=== PATIENT | female | born 1975 | race African-American/Black ===

== ENCOUNTER 2017-03-29 08:00 | Inpatient (IN) | payer OTHER ==
[2017-03-29 09:45] LABS: MCH 30.1 pg (25.7-33.7); MEAN PLT VOLUME 7.8 fl (7.5-11.1); PLATELET COUNT 339 K/MM3 (134-434); RDW 14.6 % (11.6-15.6)
[2017-03-29 09:46] VITALS: BMI 30.2
[2017-03-29 09:56] LABS: INR 0.89 (0.82-1.09); PROTHROMBIN TIME (PATIENT) 9.8 SEC (9.98-11.88)
[2017-03-29 09:59] LABS: ACTIVATED PTT 29.3 SECONDS (26.9-34.4)
[2017-03-29 10:16] LABS: ANION GAP 10 (8-16); CALCIUM 8.8 mg/dL (8.5-10.1); CO2 23 mmol/L (21-32); CREATININE 0.7 mg/dL (0.55-1.02); GLUCOSE,RANDOM 74 mg/dL (74-106)
[2017-03-29] MEDS ORDERED: DINOPROSTONE 10 MG VAGINAL SUPPOSITORY VG ONE (10:25)
[2017-03-29] MEDS ORDERED: PROMETHAZINE HCL 25 MG/1 ML VIAL IVPUSH ONE (10:37)
[2017-03-29] MEDS ORDERED: BUTORPHANOL TARTRATE 1 MG/ML VIAL IVPB ONE (10:37)
--- NOTE | 2017-03-29 10:54 | HP ---
Past Medical History - Admission Chief Complaint: Here for labor induction History of Present Illness: 42 y/o female with SIUP at 40.6 weeks here for labor induction due to AMA. complicated only by mom being AMA, a sickle cell trait carrier - FOB negative as well as SMA carrier (FOB not tested). Pt with low risk PENTA screen. Pt declined other testing. GBS negative. History Source: Patient, Medical Record Limitations to Obtaining History: No Limitations - Past Medical History Cardiovascular: No: CAD, HTN Pulmonary: No: Asthma, COPD Gastrointestinal: No: GERD, Irritable Bowel Disease Hepatobiliary: No: Hepatitis B, Hepatitis C Renal/: No: UTI Reproductive: No: Fibroids, PID ...: 3 ...Para: 2 ...Term: 2 ...: 0 ...Spon : 0 ...Induced : 0 ...Multiple Gestation: 0 ...EDC by Sono: 03/23/17 Heme/Onc: Yes: Sickle Cell Trait. No: Anemia Infectious Disease: No: MRSA, STD's Psych: No: Anxiety, Bipolar, Depression Endocrine: No: Diabetes Mellitus, Hyperthyroidism - Past Surgical History Past Surgical History: Yes: None Hx Myomectomy: No Hx Transabdominal Cerclage: No - Smoking History Smoking history: Never smoked Have you smoked in the past 12 months: No - Alcohol/Substance Use Hx Alcohol Use: No - Social History ADL: Independent History of Recent Travel: No Home Medications - Allergies Allergies/Adverse Reactions: Allergies Allergy/AdvReac Type Severity Reaction Status Date / Time No Known Allergies Allergy Verified 03/29/17 09:35 - Home Medications Home Medications: Ambulatory Orders Pnv95/Ferrous Fumarate/FA [ Vitamin Tablet] 1 each PO DAILY 03/29/17 Review of Systems - Review of Systems Constitutional: reports: No Symptoms Eyes: reports: No Symptoms HENT: reports: No Symptoms Neck: reports: No Symptoms Cardiovascular: reports: No Symptoms Respiratory: reports: No Symptoms Gastrointestinal: reports: No Symptoms Genitourinary: reports: No Symptoms Breasts: reports: No Symptoms Reported Musculoskeletal: reports: No Symptoms Integumentary: reports: No Symptoms Neurological: reports: No Symptoms Endocrine: reports: No Symptoms Hematology/Lymphatic: reports: No Symptoms Psychiatric: reports: No Symptoms Physical Exam - Maternity Vital Signs: Vital Signs Temperature 98.1 F 03/29/17 10:00 Pulse Rate 18 L 03/29/17 10:00 Respiratory Rate 18 03/29/17 10:00 Blood Pressure 109/67 03/29/17 10:00 O2 Sat by Pulse Oximetry (%) Constitutional: Yes: Well Nourished, No Distress, Calm Eyes: Yes: Conjunctiva Clear, EOM Intact HENT: Yes: Atraumatic, Normocephalic Neck: Yes: Supple, Trachea Midline Cardiovascular: Yes: Regular Rate and Rhythm Lungs: Clear to auscultation - Abdominal Exam/OB Number of Fetuses: Single Presentation: Vertex Contractions: Yes Regularity: Irregular Intensity: Unaware Heart Rate (range): 125 Category: I Accelerations: Uniform Decelerations: None - Vaginal Exam/OB Vaginal Bleediing: No Dilatation (cm): 2 Effacement (%): 50 Amniotic Membrane Status: Intact Presentation: Vertex/Position Station: -2 - Physical Exam Psychiatric: Yes: Alert, Oriented - Labs Lab Results: CBC, BMP 03/29/17 09:30 03/29/17 09:30 Hemorrhage Risk Assessment - Risk Factors Medium Risk Factors: Yes: None High Risk Factors: Yes: None Risk Score: 1 Risk Level: Medium Risk Problem List - Problems (1) Advanced maternal age (AMA), 40 years or greater Code(s): RLK2055 - (2) Obesity (BMI 30.0-34.9) Code(s): E66.9 - OBESITY, UNSPECIFIED Assessment/Plan 42 yo with SIUP at 40.6 weeks for IOL - AFVSS - FHTS cat 1 - IOL, cervidil placed at this time, for removal at 2230 and start pitocin - GBS negative
[2017-03-29 11:01] LABS: PLATELET COMMENT2 NO CLOTTING DETECTED; PLATELET COMMENT3 FEW GIANT PLTS; PLATELET ESTIMATE ADEQUATE (NORMAL)
[2017-03-29] MEDS ORDERED: TUBERCULIN PPD 5 TU/0.1ML SYRINGE (IN PATIENT USE ONLY) ID ONE (11:30)
[2017-03-29] MEDS ORDERED: OXYTOCIN 15 UNITS/ LR 250 ML 250 ML IVPB SCH (23:00)
[2017-03-29] MEDS: ELECTROLYTE-148 SOLN 1,000 ML IV SCH (23:21)
[2017-03-30] MEDS ORDERED: FENTANYL/BUPIVACAINE/NS/PF - PCEA - 50 ML DISP.SYRIN EP SCH ×2 (02:15→07:15)
[2017-03-30] MEDS: ELECTROLYTE-148 SOLN 1,000 ML IV SCH (06:20)
--- NOTE | 2017-03-30 08:38 | PN ---
Delivery - Delivery Vaginal Delivery: No Problems Type of Anesthesia: Epidural Episiotomy/Laceration: None EBL (cc): 300 Delivery, Single - Stages of Labor Date of Delivery: 03/30/17 Time of Delivery: : Date Placenta Delivered: 03/30/17 Time Placenta Delivered: Placenta: Yes: Spontaneous - Condition of Infant Gender: Male Position: Right, OA - 1 Minute Total Score: 9 5 Minutes Total Score: 9 - Feeding Plan Initial Plan: Elected not to breastfeed exclusively throughout hospitalization Remarks - Remarks Remarks: uncomplicated of baby boy from JOSE G position - restituted ZEFERINO anterior shoulder (right) delivered with ease along with medicaid billing clerk shoulder and remainder of delayed cord clamping completed 3VC noted, clamped and cut Apgars 9/9 mom stable baby to well baby nursery Oxytocin infusing after delivery lochia WNL Sponge count correct
[2017-03-30] MEDS ORDERED: ACETAMINOPHEN 325 MG TABLET (FP) PO PRN (08:39)
[2017-03-30] MEDS ORDERED: BENZOCAINE 20% 57 GM BOTTLE TP PRN (08:39)
[2017-03-30] MEDS ORDERED: METHYLERGONOVINE MALEATE 0.2 MG/1 ML AMP IM PRN (08:39)
[2017-03-30] MEDS ORDERED: WITCH HAZEL 50% (TUCKS) 40 PAD/JAR PAD TP PRN (08:39)
[2017-03-30] MEDS ORDERED: oxyCODONE HCL 5 MG TABLET PO PRN (08:39)
[2017-03-30] MEDS ORDERED: BISACODYL 10 MG SUPP.RECT RC PRN (08:39)
[2017-03-30] MEDS ORDERED: BENZOCAINE 28 GM HEMORRHOIDAL OINTMENT TP PRN (08:39)
--- NOTE | 2017-03-30 08:45 | PN ---
Ante-Partal Exam - Subjective Subjective: Pt feeling pressure. Vital Signs: Vital Signs Temperature 99.0 F 03/30/17 08:00 Pulse Rate 99 H 03/30/17 06:35 Respiratory Rate 18 03/30/17 06:35 Blood Pressure 145/88 03/30/17 06:35 O2 Sat by Pulse Oximetry (%) 100 03/30/17 06:35 Bleeding: Yes Bleeding Description: Mild Headache: No Visual changes: No Right upper quadrant pain: No Pain (scale 1-10): 6 - Contractions Contractions: Yes Regularity: Regular Intensity: Strong Monitor Mode: External - Exam during Labor Heart Rate: 120 Variability: Moderate Heart Rate Location: [facility] Category: II Monitor Accelerations: Present Monitor Decelerations: Variable Exam: Vaginal Dilatation (cm): 9.5 Effacement (%): 100 Amniotic Membrane Status: Ruptured Presentation: Vertex Station: +1 - Intrapartum Hemorrhage Risk Medium Risk Factors: None High Risk Factors: None Risk Score: 0 Risk Level: Low Risk - Assessment/Plan Assessment/Plan: 42 y/o with SIUP at 41 weeks, labor induction due to AMA - FHTS cat 2 - IOL, s/p cervidil, now in labor, cat 2 - to begin pushing - GBS negative
[2017-03-30] MEDS: PRENATAL VITAMINS W/ FOLIC ACID TABLET (FP) PO SCH (10:00)
[2017-03-30] MEDS: OXYTOCIN 20 UNITS in 0.9% NS 1,000 ML IV SCH (10:02)
[2017-03-31] MEDS: IBUPROFEN 600 MG TABLET (FP) PO PRN ×3 (00:20→23:59)
--- NOTE | 2017-03-31 07:53 | PN ---
Post Progress Note - Subjective Subjective: 42 yo status post normal spontaneous vaginal delivery, seen and evaluated. Doing well. Type of Delivery: Vital Signs: Vital Signs Temperature 98.3 F 03/31/17 05:48 Pulse Rate 73 03/31/17 05:48 Respiratory Rate 20 03/31/17 05:48 Blood Pressure 123/73 03/31/17 05:48 O2 Sat by Pulse Oximetry (%) 100 03/30/17 09:30 Breast Exam: Yes: Soft Uterus: Yes: Fundus Firm Abdomen/GI: Yes: Abdomen soft, Tolerating PO Lochia: Yes: Rubra Lochia, amount: Moderate Extremities: Yes: Calves non-tender Activity: Ambulating - Labs Labs: CBC WBC 8.0 K/mm3 (4.0-10.0) 03/29/17 09:30 RBC 3.97 M/mm3 (3.60-5.2) 03/29/17 09:30 Hgb 11.9 GM/dL (10.7-15.3) 03/29/17 09:30 Hct 34.2 % (32.4-45.2) 03/29/17 09:30 MCV 86.0 fl (80-96) 03/29/17 09:30 MCHC 35.0 g/dl (32.0-36.0) 03/29/17 09:30 RDW 14.6 % (11.6-15.6) 03/29/17 09:30 Plt Count 339 K/MM3 (134-434) 03/29/17 09:30 MPV 7.8 fl (7.5-11.1) 03/29/17 09:30 Neutrophils % 65.0 % (42.8-82.8) 03/29/17 09:30 Lymphocytes % 26.0 % (8-40) 03/29/17 09:30 Monocytes % 5.0 % (3.8-10.2) 03/29/17 09:30 Band Neutrophils 3.0 % (0-10) 03/29/17 09:30 Reactive Lymphocytes 1 % (0-80) 03/29/17 09:30 Platelet Estimate Adequate (NORMAL) 03/29/17 09:30 Platelet Comment No clumping noted 03/29/17 09:30 Platelet Comment No clotting detected 07/06/17 09:30 Assessment/Plan Status post normal vaginal delivery Stable Continue routine care
[2017-03-31 08:53] LABS: BASOPHIL 0.5 % (0-2.0); EOSINOPHIL 0.8 % (0-4.5); MCH 29.7 pg (25.7-33.7); MCHC 34.3 g/dl (32.0-36.0); MEAN CELL VOLUME 86.5 fl (80-96); MEAN PLT VOLUME 7.6 fl (7.5-11.1); NEUTROPHILS 78.3 % (42.8-82.8); PLATELET COUNT 301 K/MM3 (134-434); RDW 14.3 % (11.6-15.6); WHITE BLOOD COUNT 17.5 K/mm3 (4.0-10.0)
[2017-03-31] MEDS: PRENATAL VITAMINS W/ FOLIC ACID TABLET (FP) PO SCH (10:07)
[2017-03-31] MEDS: OXYTOCIN 20 UNITS in 0.9% NS 1,000 ML IV SCH (13:37)
[2017-03-31] MEDS: ELECTROLYTE-148 SOLN 1,000 ML IV SCH (13:38)
--- NOTE | 2017-03-31 20:12 | DS ---
Physical Exam-SUPERINTENDENT STATIONS Vital Signs: Vital Signs Temperature 98.9 F 03/31/17 08:25 Pulse Rate 78 03/31/17 08:25 Respiratory Rate 20 03/31/17 08:25 Blood Pressure 130/89 03/31/17 08:25 O2 Sat by Pulse Oximetry (%) 100 03/30/17 09:30 Labs: CBC, BMP 03/31/17 08:40 03/29/17 09:30 Delivery - Delivery Vaginal Delivery: No Problems Type of Anesthesia: Epidural Episiotomy/Laceration: None EBL (cc): 300 Delivery, Single - Stages of Labor Date 1st Stage Initiatied: 03/30/17 Time 1st Stage Initiated: 22:00 Date 2nd Stage Initiated: 03/30/17 Time 2nd Stage Initiated: 08:05 Date of Delivery: 03/30/17 Time of Delivery: 08:24 Time Placenta Delivered: 08:27 Placenta: Yes: Spontaneous - Condition of Medical Assistant/Eye Clinic Manager Present: No Infant Gender: Male Weight: 8 lb 1 oz Position: Right, OA Total Hours ROM (Hrs/Mins): 6hrs 57min - 1 Minute Total Score: 9 5 Minutes Total Score: 9 - Feeding Plan Initial Plan: Elected not to breastfeed exclusively throughout hospitalization Discharge Summary Reason For Visit: CERVIDIL INDUCTION Current Active Problems Advanced maternal age (AMA), 40 years or greater (Acute) Obesity (BMI 30.0-34.9) (Acute) Status post normal delivery (Acute) Procedures: Principal: Labor induction and uncomplicated . . Hospital Course: Normal/unremarkable post recovery. Condition: Good - Instructions Diet, Activity, Other Instructions: Physical activity Resume your normal everyday activity as tolerated no heavy lifting or exercise until seen by your doctor. You may walk unlimited rianna of and climb stairs. You may resume driving the car when you feel safe and comfortable behind the wheel. No sexual activity as instructed for 6 weeks. You may shower - no soaking in tubs/baths/pools for 6 weeks. Diet There are no dietary restrictions. Eat healthy, high-fiber foods. Drink 6 to 8 glasses of liquid each day. This will assist in keeping your bowels regular. Pain management You may take Tylenol or Ibuprofen (for example, Motrin, Advil etc.) as needed for pain. Call MD for any of the following: Severe pain not relieved by medication Fever of 101 or higher Excessive bleeding or drainage on dressing Inability to urinate Referrals: Yudy Mcconnell DO [Staff Physician] - Disposition: HOME - Home Medications Comprehensive Discharge Medication List: Ambulatory Orders Pnv95/Ferrous Fumarate/FA [ Vitamin Tablet] 1 each PO DAILY 03/29/17 Ibuprofen [Motrin -] 600 mg PO QID PRN #28 tablet 03/31/17
[2017-03-31] MEDS ORDERED: SENNOSIDES/DOCUSATE COMBO (SENNA PLUS) TABLET (UD) PO PRN (22:00)
[2017-03-31 23:29] VITALS: PULSE 68
[2017-04-01 08:29] VITALS: BP 115/74; TEMP 98.6
[2017-04-01] MEDS: PRENATAL VITAMINS W/ FOLIC ACID TABLET (FP) PO SCH (09:12)
== END 2017-04-01 13:25 | disposition home or self-care (01) | DRG 560 ==
LOC: JLDR 08:00 → J3W 14:35 → JLDR 03-30 00:42 → J3W 03-30 10:55
PROVIDERS: ADMIT Obstetrics & Gynecology; ATTEND Obstetrics & Gynecology
PROC: 10E0XZZ Delivery of Products of Conception, External Approach (ICD-10-PCS; principal; 2017-03-30)
PROC: 3E0P7GC Introduction of Other Therapeutic Substance into Female Reproductive, Via Natural or Artificial Opening (ICD-10-PCS; 2017-03-30)
DX: O48.0 Post-term pregnancy (principal); O99.214 Obesity complicating childbirth; D57.3 Sickle-cell trait; Z3A.40 40 weeks gestation of pregnancy; Z37.0 Single live birth
CPT/HCPCS: 36415; 59409; 80048; 85025; 85610; 85730; 86593; 86850; 86900; 86901